=== PATIENT | male | born 1960 | race Caucasian/White ===

== ENCOUNTER → 2017-07-11 | Outpatient (CLI) | payer OTHER ==
[~2017-07-11] MED LIST: NO HOME MEDICATIONS
== END ==
LOC: COL.RAD 09:23
DX: M19.012 Primary osteoarthritis, left shoulder (principal); S43.082A Other subluxation of left shoulder joint, initial encounter; M75.82 Other shoulder lesions, left shoulder; S46.812A Strain of other muscles, fascia and tendons at shoulder and upper arm level, left arm, initial encounter; M94.8X1 Other specified disorders of cartilage, shoulder; S43.492A Other sprain of left shoulder joint, initial encounter

== ENCOUNTER → 2017-08-01 | Outpatient (CLI) | payer OTHER | LOC: COL.RAD 07:57 | DX: M25.512 Pain in left shoulder (principal) | CPT/HCPCS: J3301; Q9967 ==

== ENCOUNTER → 2018-07-20 | Outpatient (CLI) | payer OTHER | LOC: COL.RAD 08:57 | DX: M25.512 Pain in left shoulder (principal) | CPT/HCPCS: J3301; Q9967 ==